=== PATIENT | female | born 1970 | race Caucasian/White ===

== ENCOUNTER → 2023-10-11 15:28 | Outpatient (CLI) | payer SELFPAY ==
--- NOTE | ~2023-10-11 | XR_ITS ---
EXAMINATION: XR ankle RT min 3V DATE: 10/11/2023 16:15 INDICATION: Posterior right ankle pain TECHNIQUE: Anteroposterior, oblique, mortise, and lateral views of the right ankle were obtained. COMPARISON: None. FINDINGS: Alignment is normal. No fracture. Joint spaces are well maintained. Moderate-sized plantar calcaneal spur. No ankle joint effusion. The soft tissues are unremarkable. IMPRESSION: 1. Moderate size plantar calcaneal spur. Reviewed, dictated and finalized at location A. AMATIC MECHANIC
--- NOTE | ~2023-10-11 | XR_ITS ---
EXAMINATION: XR hip LT 2V w AP pelvis DATE: 10/11/2023 16:16 INDICATION: Nontraumatic left hip pain TECHNIQUE: Anteroposterior view of the pelvis and anteroposterior and frog-leg lateral views of the l eft hip were obtained. COMPARISON: None. FINDINGS: Alignment is normal. No fracture or suspected osteonecrosis. Mild bilateral hip and sacroiliac osteoa rthritis. Severe lower lumbar facet osteoarthritis. IMPRESSION: 1. 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 Reviewed, dictated and finalized at location A. RAM MANAGEMENT MANAGER IMPRESSION: 1. 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
== END ==
PROVIDERS: PCP Family Medicine; Visit Provider Nurse Practitioner Family
DX: M16.12 Unilateral primary osteoarthritis, left hip (principal); M77.31 Calcaneal spur, right foot
CPT/HCPCS: 73502; 73610